=== PATIENT | female | born 1975 | race Caucasian/White ===

== ENCOUNTER 2023-08-18 17:57 | Inpatient (IN) ==
[2023-08-18] MEDS ORDERED: IOPAMIDOL 100 ML BOTTLE IV ONE (17:58)
[2023-08-18 18:44] LABS: Basophils # (Auto) 0.11 K/mcL (0.00-0.30); Eosinophils % (Auto) 2.8 % (0.0-7.0); Hematocrit 43.4 % (34.1-44.9); Hemoglobin 14.5 g/dL (11.2-15.7); Lymphocytes # (Auto) 4.28 K/mcL (1.50-4.80); Lymphocytes % (Auto) 40.4 % (15.5-49.0); Mean Cell Volume 89.5 fL (80.0-100.0); Mean Corpuscular HGB Conc 33.4 g/dL (31.0-36.0); Mean Platelet Volume 9.6 fL (8.8-12.5); Monocytes # (Auto) 0.74 K/mcL (0.10-0.90); Neutrophils % (Auto) 48.7 % (38.0-78.0); Platelet Count 244 K/mcL (140-440); RBC 4.85 M/mcL (3.59-5.38); Red Cell Distribution Width 13.1 % (11.5-14.5); WBC 10.6 K/mcL (4.5-11.0)
[2023-08-18 19:00] LABS: HCG,Serum Negative
[2023-08-18] MEDS: KETOROLAC 15 MG/ML VIAL IV ONE (19:39)
[2023-08-18] MEDS: METOCLOPRAMIDE 10 MG/2 ML VIAL IV ONE (19:39)
[2023-08-18 19:54] LABS: ALT/SGPT < 5 U/L (<40); AST/SGOT 15 U/L (<32); Albumin 3.8 gm/dL (3.2-5.2); Albumin/Globulin Ratio 1.3 (1.0-2.3); Alkaline Phosphatase 88 U/L (39-117); Bilirubin,Total 0.2 mg/dL (0.1-1.0); Blood Urea Nitrogen 13 mg/dL (6-20); Calcium 8.8 mg/dL (8.6-10.4); Carbon Dioxide 31 mmol/L (22-30); Chloride 98 mmol/L (96-108); Globulin 2.9 gm/dL (2.2-3.7); Glomerular Filtration Rate 115; Glucose 104 mg/dL (70-105)
[2023-08-18] MEDS: POTASSIUM CHLORIDE 20 MEQ TABLET PO ONE (21:19)
[2023-08-18] MEDS: 0.9 % SODIUM CHLORIDE 1,000 ML IV ONE (21:20)
[2023-08-18] MEDS: POTASSIUM CHLORIDE 20 MEQ in DEXTROSE 5% IN WATER 250 ML IV ONE (21:20)
[2023-08-18] MEDS: HYDROmorphone 0.5 MG/0.5 ML SYRINGE IV ONE (21:20)
[2023-08-18] MEDS ORDERED: ONDANSETRON 4 MG/2 ML VIAL IV PRN (21:37)
[2023-08-18 21:41] LABS: Appearance,Urine Clear (Clear); Bacteria,Urine Many /hpf (0); Bilirubin,Urine Negative (Negative); Color,Urine Yellow; Culture Indicated,Urine Yes; Glucose,Urine (UA) Negative (Negative); Ketones,Urine Negative (Negative); Leukocyte Esterase,Urine Trace /uL (Negative); Nitrate,Urine Positive (Negative); Protein,Urine Negative (Negative); Urine Blood Trace-intact ery/mcL (Negative); Urine RBC 2 /hpf (0-3); Urine Squamous Epithelial Cell 3 /hpf (0-4); Urine WBC 4 /hpf (0-4); Urobilinogen,Urine Normal
[2023-08-18] MEDS ORDERED: DEXTROSE 31 GM ORAL.SUSP PO PRN (21:42)
[2023-08-18] MEDS ORDERED: DEXTROSE 50% 50 ML VIAL IV PRN (21:42)
[2023-08-18] MEDS: PIPERACILLIN SODIUM/TAZOBACTAM 3.375 GM in 0.9 % SODIUM CHLORIDE 100 ML IV SCH (22:34)
[2023-08-18] MEDS: 0.9 % SODIUM CHLORIDE 1,000 ML IV SCH (22:35)
[2023-08-19] MEDS: HYDROmorphone 0.5 MG/0.5 ML SYRINGE IV PRN ×2 (00:09→14:02)
[2023-08-19 06:17] LABS: Basophils # (Auto) 0.09 K/mcL (0.00-0.30); Eosinophils # (Auto) 0.34 K/mcL (0.00-0.70); Eosinophils % (Auto) 3.9 % (0.0-7.0); Hematocrit 40.3 % (34.1-44.9); Hemoglobin 13.3 g/dL (11.2-15.7); Lymphocytes # (Auto) 3.82 K/mcL (1.50-4.80); Lymphocytes % (Auto) 44.3 % (15.5-49.0); Mean Cell Volume 90.6 fL (80.0-100.0); Mean Platelet Volume 9.6 fL (8.8-12.5); Monocytes # (Auto) 0.62 K/mcL (0.10-0.90); Monocytes % (Auto) 7.2 % (1.0-12.0); Neutrophils % (Auto) 43.5 % (38.0-78.0); Platelet Count 204 K/mcL (140-440); RBC 4.45 M/mcL (3.59-5.38); Red Cell Distribution Width 13.4 % (11.5-14.5); WBC 8.6 K/mcL (4.5-11.0)
[2023-08-19 06:53] LABS: ALT/SGPT 5 U/L (<40); AST/SGOT 15 U/L (<32); Albumin 3.2 gm/dL (3.2-5.2); Albumin/Globulin Ratio 1.3 (1.0-2.3); Alkaline Phosphatase 73 U/L (39-117); Bilirubin,Direct < 0.2 mg/dL (0-0.3); Bilirubin,Total 0.4 mg/dL (0.1-1.0); Blood Urea Nitrogen 10 mg/dL (6-20); Calcium 8.5 mg/dL (8.6-10.4); Carbon Dioxide 26 mmol/L (22-30); Chloride 104 mmol/L (96-108); Globulin 2.4 gm/dL (2.2-3.7); Glomerular Filtration Rate 124; Glucose 84 mg/dL (70-105); Lactate Dehydrogenase 120 U/L (135-225); Phosphorous 3.3 mg/dL (2.5-4.5); Triglycerides 109 mg/dL (<150); Uric Acid 3.8 mg/dL (2.5-8.0)
[2023-08-19] MEDS: INSULIN LISPRO 1 UNIT/0.01 ML UNIT SQ SCH (07:21)
[2023-08-19] MEDS ORDERED: ALBUTEROL SULFATE 60 PUFF INHALER INH PRN ×2 (08:50→08:58)
[2023-08-19] MEDS: IPRATROPIUM/ALBUTEROL 3 ML AMPUL.NEB NEB PRN (09:00)
[2023-08-19] MEDS: BUPRENORPHINE/NALOXONE 4MG/1MG ORAL FILM SL SCH (10:43)
[2023-08-19] MEDS ORDERED: GLYCOPYRROLATE 0.2 MG/ML VIAL IV ONE (11:19)
[2023-08-19] MEDS ORDERED: DEXAMETHASONE 10 MG/ML VIAL ONE (11:19)
[2023-08-19] MEDS ORDERED: ONDANSETRON 4 MG/2 ML VIAL ONE (11:19)
[2023-08-19] MEDS ORDERED: PROPOFOL 200 MG/20 ML VIAL IV ONE (11:19)
[2023-08-19] MEDS ORDERED: ROCURONIUM 10 MG/ML ML IV ONE ×2 (11:23→12:52)
[2023-08-19] MEDS ORDERED: SUGAMMADEX SODIUM 200 MG/2 ML VIAL IV ONE (11:23)
[2023-08-19] MEDS ORDERED: KETAMINE 50 MG/ML Syringe IV ONE (11:38)
[2023-08-19] MEDS ORDERED: MAGNESIUM SULFATE 2 GM/50 ML BAG IV ONE (11:38)
[2023-08-19] MEDS ORDERED: HYDROmorphone 1 MG/ML SYRINGE ONE (11:40)
[2023-08-19] MEDS ORDERED: PHENYLephrine 1 MG/10 ML SYRINGE (ANEST) ONE (12:16)
[2023-08-19] MEDS ORDERED: DEXMEDETOMIDINE HCL 200 MCG/2 ML VIAL ONE (12:33)
[2023-08-19] MEDS ORDERED: IPRATROPIUM/ALBUTEROL 3 ML AMPUL.NEB NEB PRN (13:11)
[2023-08-19] MEDS ORDERED: ONDANSETRON 4 MG/2 ML VIAL IV PRN (13:11)
[2023-08-19] MEDS ORDERED: KETOROLAC 30 MG/ML VIAL ONE (13:14)
[2023-08-19] MEDS: fentaNYL 100 MCG/2 ML VIAL IV PRN ×2 (13:45→15:52)
[2023-08-19] MEDS: 0.9 % SODIUM CHLORIDE 10 ML SYRINGE IV SCH (14:28)
[2023-08-19] MEDS ORDERED: GABAPENTIN 100 MG CAPSULE PO PRN (14:32)
[2023-08-19] MEDS: LACTATED RINGERS 1,000 ML IV SCH (14:51)
[2023-08-19] MEDS: METOCLOPRAMIDE 10 MG/2 ML VIAL IV SCH (17:36)
[2023-08-20 06:13] LABS: Basophils # (Auto) 0.04 K/mcL (0.00-0.30); Basophils % (Auto) 0.2 % (0.0-2.0); Eosinophils # (Auto) 0 K/mcL (0.00-0.70); Eosinophils % (Auto) 0 % (0.0-7.0); Hematocrit 38.1 % (34.1-44.9); Hemoglobin 12.8 g/dL (11.2-15.7); Lymphocytes # (Auto) 2.77 K/mcL (1.50-4.80); Lymphocytes % (Auto) 14.6 % (15.5-49.0); Mean Cell Volume 90.5 fL (80.0-100.0); Mean Corpuscular HGB Conc 33.6 g/dL (31.0-36.0); Mean Platelet Volume 10.2 fL (8.8-12.5); Monocytes # (Auto) 1.49 K/mcL (0.10-0.90); Monocytes % (Auto) 7.9 % (1.0-12.0); Neutrophils % (Auto) 77.1 % (38.0-78.0); Platelet Count 234 K/mcL (140-440); RBC 4.21 M/mcL (3.59-5.38); WBC 18.9 K/mcL (4.5-11.0)
[2023-08-20 06:54] LABS: ALT/SGPT 93 U/L (<40); AST/SGOT 79 U/L (<32); Albumin 3.3 gm/dL (3.2-5.2); Albumin/Globulin Ratio 1.3 (1.0-2.3); Alkaline Phosphatase 84 U/L (39-117); Bilirubin,Direct < 0.2 mg/dL (0-0.3); Bilirubin,Total 0.5 mg/dL (0.1-1.0); Blood Urea Nitrogen 8 mg/dL (6-20); Calcium 8.3 mg/dL (8.6-10.4); Carbon Dioxide 26 mmol/L (22-30); Chloride 107 mmol/L (96-108); Globulin 2.5 gm/dL (2.2-3.7); Glomerular Filtration Rate 124; Glucose 100 mg/dL (70-105); Lactate Dehydrogenase 188 U/L (135-225); Phosphorous 3.6 mg/dL (2.5-4.5); Triglycerides 66 mg/dL (<150); Uric Acid 2.5 mg/dL (2.5-8.0)
[2023-08-20] MEDS: OXYBUTYNIN CHLORIDE 5 MG TABLET PO SCH (08:02)
[2023-08-20] MEDS: VENLAFAXINE 75 MG CAP.XL.24H PO SCH (08:02)
[2023-08-20] MEDS ORDERED: VENLAFAXINE 150 MG CAP.XL.24H PO SCH (09:00)
== END 2023-08-21 15:10 | disposition home or self-care (01) | DRG 415 ==
LOC: MEDSUR 17:57 → ED 17:57 → MEDSUR 22:43
PROVIDERS: ADMIT Family Medicine Adult Medicine; ATTEND Family Medicine Adult Medicine